=== PATIENT | female | born 1975 | race Caucasian/White ===

== ENCOUNTER 2017-01-31 12:28 | Emergency (ER) | payer MEDICAID ==
[2017-01-31 12:36] VITALS: TEMP 96.8
[2017-01-31] MEDS ORDERED: ONDANSETRON 4 MG/2 ML VIAL ONE (12:41)
--- NOTE | 2017-01-31 12:52 | EDPHY ---
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 Has had epinephrine between 5 and 10 times in the past. Last hospitalized when she was 14 years old. She suddenly got a pecan in a bite of pie at noon and presents with severe nausea and vomiting, face swelling, itching, trouble breathing, and esophageal spasms. The symptoms severe. Started after the nut ingestion. Not associated with wheezing. Not better or worse with anything, took 75 mg Benadryl. REVIEW OF SYSTEMS: Eye: no change in vision ENT: Throat swelling Cardiac: no chest pain or syncope Pulmonary: HPI Abdomen: no vomiting, diarrhea, abdominal pain Musculoskeletal: no back pain Skin: Redness on palms and soles Neuro: no headache Constitutional: no fever : no urinary symptoms A comprehensive 10 point review of systems is otherwise negative aside from elements mentioned in the history of present illness. PAST MEDICAL HISTORY: Asthma, depression Social history: Nonsmoker, no PCP General Appearance: Alert and conversant, cooperative. Eyes: No scleral icterus. ENT, Mouth: Slightly swollen uvula but no stridor or drooling and no tongue swelling. Respiratory: Normal respiratory effort, breath sounds equal, lungs are clear to auscultation. No wheezing. Cardiovascular: Regular rate and rhythm. Gastrointestinal: Abdomen is soft and non tender. Neurological: Alert and oriented x3. Normally conversant. Face symmetric, normal movement and sensation in all extremities. Skin: Red on the palms of her hands but no other urticaria. Musculoskeletal: No peripheral edema and no joint swelling. Psychiatric: Not agitated. Emergency Department course/MDM: The received intramuscular epinephrine 0.3 mL is, IV Solu-Medrol 125 mg, ranitidine 50 mg IV. She took Benadryl 75 mg prior to arrival. 1400: Feels better, throat is improved, vomiting anymore, esophageal spasm has subsided. Plan to observe the patient in the department Patient has EpiPen and primary care follow-up. 1635: Feels better, back to normal, stable for discharge. Smoking Status: Never smoked Constitutional: Initial Vital Signs Temperature (C) 36.0 C 01/31/17 12:35 Heart Rate 100 01/31/17 12:35 Respiratory Rate 18 01/31/17 12:35 Blood Pressure 148/100 H 01/31/17 12:35 O2 Sat (%) 98 01/31/17 12:35 O2 Delivery Mode Room Air Allergies/Adverse Reactions: bupropion HCl [From Wellbutrin SR] Allergy (Verified 11/20/15 14:31) theophylline Allergy (Verified 11/20/15 14:31) Home Medications: Medication Instructions Recorded oxyCODONE/APAP 5/325 [Percocet 1 tab PO Q4-6PRN PRN #14 tab 11/20/15 5/325] Famotidine [Pepcid] 20 mg PO BID #6 tab 01/31/17 predniSONE [prednisone 20mg (RX)] 60 mg PO DAILY 3 Days tab 01/31/17 Medical Decision Making Critical Care Time: Critical care time spent by me, Dr. Kelley, exclusively with the care of this patient was 30 minutes, exclusive of PA or GOVERNMENT INSTRUCTOR time and exclusive of separate procedures. The organ system at risk was airway and I ordered epinephrine, antihistamines, IV steroids, serial examinations, antiemetics and IV fluids; to stabilize the patient and prevent worsening of the patient's condition. - Data Points Medications Given: Discontinued Medications Epinephrine HCl (Epinephrine) 0.3 mg IM EDNOW ONE Stop: 01/31/17 12:55 Last Admin: 01/31/17 12:56 Dose: 0.3 mg Sodium Chloride (Ns) 1,000 mls @ 0 mls/hr IV ONCE ONE; Wide Open PRN Reason: Protocol Stop: 01/31/17 12:57 Last Admin: 01/31/17 12:57 Dose: 1,000 mls Methylprednisolone Sodium Succinate (Solu-Medrol) 125 mg IVP EDNOW ONE Stop: 01/31/17 12:55 Last Admin: 01/31/17 12:56 Dose: 125 mg Ondansetron HCl (Zofran) 4 mg IVP EDNOW ONE Stop: 01/31/17 12:57 Last Admin: 01/31/17 12:57 Dose: 4 mg Ranitidine HCl (Zantac) 50 mg IV EDNOW ONE Stop: 01/31/17 12:55 Last Admin: 01/31/17 12:56 Dose: 50 mg Departure - Departure Disposition: Home, Routine, Self-Care Clinical Impression: Acute anaphylaxis Qualifiers: Encounter type: initial encounter Qualified Code(s): T78.2XXA - Anaphylactic shock, unspecified, initial encounter Condition: Good Instructions: Food Allergy (ED), Anaphylaxis (ED) Referrals: Trixie Menjivar FNP [Retired Resigned] - As per Instructions Prescriptions: Famotidine [Pepcid] 20 mg PO BID #6 tab predniSONE [prednisone 20mg (RX)] 60 mg PO DAILY 3 Days tab
[2017-01-31] MEDS ORDERED: RANITIDINE 50 MG/2 ML VIAL IV ONE (12:54)
[2017-01-31] MEDS ORDERED: methylPREDNISolone SOD SUCC 125 MG/2 ML VIAL IVP ONE (12:54)
[2017-01-31] MEDS ORDERED: ONDANSETRON 4 MG/2 ML VIAL IVP ONE (12:56)
[2017-01-31] MEDS ORDERED: NS 1,000 ML IV ONE (12:56)
[2017-01-31 16:36] VITALS: BP 115/79; PULSE 86; RESP 18; O2SAT 93
[2017-01-31] MEDS ORDERED: methylPREDNISolone SOD SUCC 125 MG/2 ML VIAL ONE (17:11)
[2017-01-31] MEDS ORDERED: RANITIDINE 50 MG/2 ML VIAL ONE (17:11)
== END 2017-01-31 16:43 | disposition home or self-care (01) ==
DX: T78.2XXA Anaphylactic shock, unspecified, initial encounter (principal); E86.9 Volume depletion, unspecified; J45.909 Unspecified asthma, uncomplicated
CPT/HCPCS: 96374; J0171; J2405; J2780

== ENCOUNTER 2018-04-23 14:30 | Inpatient (IN) | payer MEDICAID, OTHER ==
[2018-04-23] MEDS ORDERED: GABAPENTIN 300 MG CAP PO ONE (20:12)
[2018-04-23] MEDS ORDERED: oxyCODONE IR 5 MG TAB PO PRN ×2 (20:18→20:19)
--- NOTE | 2018-04-23 21:22 | GHP ---
DATE OF ADMISSION: 04/23/2018 HISTORY OF PRESENT ILLNESS: I have known the patient for some time. She was scheduled to undergo can rgery later in the month, but at this point is really unable to walk, secondary to lower extremity pa in, and we have admitted her on an urgent basis for an operation. She has really been unable to ambu late or do anything whatsoever at home. The patient has been admitted to the hospital for the planne d surgery on L4 and L5. PHYSICAL EXAMINATION: NEUROLOGIC: Grossly unchanged from all my office visit. She does have bilate ral lower extremity weakness 4+/5 throughout, limited at this point by pain, as well as discomfort. Sensory disturbance is noted in L5 type distribution bilaterally. IMAGING: X-rays from clinic demonstrate an L4-5 spondylolisthesis with moderate canal stenosis. IMPRESSION: L4-5 spondylolisthesis with spinal stenosis. ASSESSMENT/PLAN: I will bump releases surgery and do this tomorrow. It will be an L4-5 MIS transfor aminal lumbar interbody fusion. The procedure is going to reduce the spondylolisthesis and bilateral L4 pars fractures. Will perform a complete facetectomy to perform a transforaminal decompression of the affected level, and will also stabilized with screws and rods. Patient will be n.p.o. after mid night. I have ordered some pain medicine in the meantime, and I will see the patient tomorrow for th e proposed operation. /[id number]/MODL
[2018-04-23] MEDS: ONDANSETRON DISINTEGRATING 4 MG TAB PO PRN (21:29)
[2018-04-23] MEDS: METHOCARBAMOL 750 MG TAB PO SCH (21:29)
[2018-04-24] MEDS: METHOCARBAMOL 750 MG TAB PO SCH ×3 (08:40→21:51)
--- NOTE | 2018-04-24 10:38 | ASMTCMCOM ---
CM Note CM Note Notes: Pt in for back surgery, was scheduled later this month but has had difficulty ambulating. Pt to have surgery and PT to eval when appropriate. H&P indicates pt resides alone. CM to follow for d/c needs. Date Signed: 04/24/2018 10:38 AM Electronically Signed By:MIK Sinclair
--- NOTE | 2018-04-24 11:01 | GPROG ---
DATE OF SERVICE: 04/24/2018 I saw and evaluated the patient today this morning. She knows to be n.p.o. for the proposed procedur e this afternoon. Everything has been squared away and will bring her back to the operating room in several hours. All questions have been answered regarding the proposed operation with the patient, b oth in the clinic, as well as in the hospital today. /[id number]/MODL
[2018-04-24] MEDS ORDERED: TRANEXAMIC ACID 1,000 MG in NS 100 ML IV ONE (14:00)
[2018-04-24] MEDS ORDERED: ceFAZolin 2 GM/DEXTROSE 100 ML IV ONE (14:00)
[2018-04-24] MEDS ORDERED: LR 1,000 ML IV ONE (14:17)
[2018-04-24] MEDS ORDERED: BUPIVACAINE/EPI 0.5% 30 ML SDV ONE ×2 (14:28→17:13)
[2018-04-24] MEDS ORDERED: SURGIFLO MATRIX KIT WITH THROMBIN 8 ML TP ONE (14:29)
[2018-04-24] MEDS ORDERED: BACITRACIN 50,000 UNITS/10 ML SYR IRR ONE (14:29)
--- NOTE | 2018-04-24 14:40 | PDANEPAE ---
ANE History of Present Illness Bilateral LE weakness and numbness ANE Past Medical History - Cardiovascular History Hx Hypertension: No Hx Arrhythmias: No Hx Chest Pain: No Hx Coronary Artery / Peripheral Vascular Disease: No Hx CHF / Valvular Disease: No Hx Palpitations: No - Pulmonary History Hx COPD: No Hx Asthma/Reactive Airway Disease: Yes Hx Recent Upper Respiratory Infection: No Hx Oxygen in Use at Home: No Hx Sleep Apnea: No Sleep Apnea Screening Result - Last Documented: Negative - Endocrine History Hx Diabetes: No - Chronic Pain History Chronic Pain: Yes ANE Review of Systems Review of systems is: negative Review of Systems: - Exercise capacity METS (RN): 4 METS ANE Patient History - Allergies Allergies/Adverse Reactions: bupropion HCl [From Wellbutrin SR] Allergy (Verified 04/23/18 21:18) Sulfa (Sulfonamide Antibiotics) Allergy (Unverified 04/23/18 21:18) Anaphylaxis theophylline Allergy (Verified 04/23/18 21:18) - Home Medications Home medications: home medication list seen and reviewed Home Medications: Albuterol [Proventil Inhaler HFA (*)] 1 - 2 puffs IH Q4H PRN 04/23/18 [Last Taken 02/13/18] Amphet Asp and D/Amphet [Adderall 10 MG (*)] 10 mg PO DAILY PRN 04/23/18 [Last Taken 04/22/18] Cyclobenzaprine [Cyclobenzaprine HCl] 5 mg PO TID PRN 04/23/18 [Last Taken 04/23 09:00] Famotidine [Pepcid 20 MG (*)] 20 mg PO BID PRN 04/23/18 [Last Taken 04/23/18 09: 00] Naproxen Sodium [Aleve 220 MG (*)] 220 mg PO BID PRN 04/23/18 [Last Taken ] - NPO status NPO Status: no food or drink >8 hours NPO Since - Liquids (Date): 04/23/18 NPO Since - Liquids (Time): 23:59 NPO Since - Solids (Date): 04/23/18 NPO Since - Solids (Time): 21:00 - Anes Hx Anes Hx: no prior problems - Smoking Hx Smoking Status: Never smoked ANE Labs/Vital Signs - Vital Signs Blood Pressure: 137/93 Heart Rate: 73 Respiratory Rate: 18 O2 Sat (%): 98 Height: 165.1 cm Weight: 89 kg ANE Physical Exam - Airway Neck exam: FROM Mallampati Score: Class 1 Mouth exam: normal dental/mouth exam - Pulmonary Pulmonary: no respiratory distress - Cardiovascular Cardiovascular: regular rate and rhythym - ASA Status ASA Status: II ANE Anesthesia Plan Anesthesia Plan: general endotracheal anesthesia
[2018-04-24] MEDS ORDERED: MIDAZOLAM 2 MG/2 ML VIAL IVP ONE (14:42)
[2018-04-24] MEDS ORDERED: MIDAZOLAM 2 MG/2 ML VIAL ONE (14:43)
[2018-04-24] MEDS ORDERED: PROPOFOL 200 MG/20 ML VIAL ONE (14:45)
[2018-04-24] MEDS ORDERED: fentaNYL 100 MCG/2 ML INJ ONE ×3 (14:45→17:47)
[2018-04-24] MEDS ORDERED: REMIFENTANIL HCL 1 MG VIAL ONE ×2 (14:45→17:02)
[2018-04-24] MEDS ORDERED: PROPOFOL/EMULSION 500 MG/50 ML BOTTLE IV ONE ×2 (14:46→17:02)
[2018-04-24] MEDS ORDERED: VANCOMYCIN 500 MG/10 ML VIAL IV ONE (15:05)
[2018-04-24] MEDS ORDERED: LIDOCAINE 2% 5 ML SDV ONE (15:22)
[2018-04-24] MEDS ORDERED: ROCURONIUM 50 MG/5 ML VIAL ONE (15:22)
[2018-04-24] MEDS ORDERED: DEXAMETHASONE 4 MG/ML VIAL ONE ×2 (15:25)
--- NOTE | 2018-04-24 15:37 | PDMN ---
Medical Necessity Medical necessity: Pt meets inpt criteria per MD order and [facility] [place] S-820, Lumbar Fusion, IP only list. 42 y/o w/spondylolisthesis w/spinal stenosis who was scheduled for surg later in month, admitted on urgent basis for as she is unable to ambulate, surgery: L4/5 TLIF, post-op care.
[2018-04-24] MEDS ORDERED: NALOXONE HCL 0.4 MG/ML INJ IVP PRN (17:09)
[2018-04-24] MEDS ORDERED: PROMETHAZINE HCL 25 MG/ML INJ IVP PRN ×2 (17:09→19:47)
[2018-04-24] MEDS ORDERED: ONDANSETRON 4 MG/2 ML VIAL IVP PRN (17:09)
[2018-04-24] MEDS ORDERED: ONDANSETRON 4 MG/2 ML VIAL ONE (17:14)
[2018-04-24] MEDS ORDERED: BISACODYL 10 MG SUPP PR PRN (17:43)
[2018-04-24] MEDS ORDERED: POLYETHYLENE GLYCOL 3350 17 GM PKT PO PRN (17:43)
[2018-04-24] MEDS ORDERED: LACTULOSE 20 GM/30 ML UDCUP PO PRN (17:43)
[2018-04-24] MEDS: fentaNYL 100 MCG/2 ML INJ IVP PRN ×2 (17:49→17:53)
--- NOTE | 2018-04-24 17:55 | SUROPNOTE ---
[facility] Operative Report - Surgery Date: 04/24/18 Pre-operative Diagnoses: L4/5 Degenerative disc disease and spondylosis L4/5 Degenerative spondylolisthesis L4 Bilateral pars insufficiency fractures Lumbar spinal stenosis Post-operative Diagnosis: Same Procedures: L4/5 Minimally Invasive Posterior Lumbar Fusion with Instrumentation Lt Transforaminal Lumbar Interbody Fusion (TLIF) Structural use of morselized local autograft bone Structural use of allograft Use of intra-operative fluoroscopy Use of intra-operative neuromonitoring, including EMG and SSEP modalities Use of a surgical microscope Surgeon: Ramakrishna Marley MD Assist: Ally Olvera Anesthesia: General endotracheal anesthesia Findings: As expected spondylolisthesis, spinal stenosis, facet hypertrophy Estimated Blood Loss: 100mL Drains: Hemovac sewn to skin Specimens: None Complications: None Condition: Transferred to PACU in stable condition Implants: NuVasive Screws: 6.5x45mm x2 Rods: 40mm x2 TLIF cage: TLX 20 deg x [id number] Allograft: 5mL allograft used structurally in the disc space and interbody cage Autograft: local bone from decompression used structurally in the disc space and interbody cage Indications: This patient was seen in my office and diagnosed with degenerative spondylolisthesis and spinal stenosis. I have explained all options of treatment for the patient, and the patient has elected to proceed with operative management. I have explained all risks, benefits, and alternatives of the proposed procedure. The risks that we have discussed include , blindness, nerve damage, infection, dural tear, failure of surgery to alleviate pre-operative symptoms, nonunion, and possible need for further operation. I explained separately the risks of allograft, including infection and disease transfer. In addition to the aforementioned procedure, I discussed with the patient that other procedures may be indicated during the course of surgery that would be considered in the patients best interest. The patient expressed understanding of this and agreed to move forward with operative management. Pre-operative: The proposed incision site was marked in the pre-operative holding area by me. The patient was then taken to the operating room in stable condition. Following smooth induction of general anesthesia, the patient was positioned prone on a [place] table in mild reverse Trendelenburg with all down surfaces well-padded. The patient was then prepped and draped in the usual sterile fashion. Pre- operative antibiotics were administered within one hour of the incision. A surgical timeout was performed, and all parties involved in the procedure were in agreement on the correct patient, location, and procedure to be performed. Level localization and spinal pause: The proposed L4 and L5 levels were identified using C-arm fluoroscopy and the skin was marked for the proposed incision. The pedicles were marked out. Two separate incisions, 4cm lateral to midline were made, approximately 4cm in length. Electrocautery was used to dissect the subdermal fat layer down to fascia and to coagulate bleeding vessels. The fascia was then incised longitudinally in line with the incision. Blunt finger dissection was then performed; the facets were palpated and muscle was swept away al allow for instrumentation to be passed easily down to bone. At this time, a secondary spinal pause was then performed, and the level was confirmed with all parties participating in the operation. Pedicle screw placement: All pedicle screws were placed in a percutaneous fashion. Using biplanar fluoroscopy, a Jamshidi needle was gently malleted into place at the appropriate pedicle screw starting position at the lateral border of the facet on the AP view and mid-point of the pedicle on lateral view. The needle was advanced just past the pedicle into the vertebral body. At this point, a neurostimulating probe was attached to the end of the needle and all potentials were noted to be above 10 milliamps. The central trocar was then removed, and a blunt K-wire was passed into the cannulated pedicle. The Jamshidi was then removed completely, with the K-wire anchored in the vertebral body. A tap was then used up to a size that was 1mm below the final screw size based on pre- operative templating. An appropriately-sized screw was placed at each level and confirmed fluoroscopically. On the same side as the TLIF cage, two headless shanks were placed, which would allow for facile visualization of bony landmarks and safe decompression. On the contralateral side, complete pedicle screws with associated reduction towers were placed at this time. All screws were then stimulated. Each screw was stimulated and potentials were all above 10 milliAmps. Approach and transpedicular decompression (cephalad level nerve root to be fused ): Based on pre-operative neurological symptoms, a decision was made with the patient to place a TLIF cage on the more symptomatic side. A pointed dilator was introduced onto the lateral pars of the caudal level to be fused. Serial dilators were used and the XLIF retractor system was then docked. Positioning was confirmed parallel to the disc space to be fused by lateral fluoroscopy. Using a transpedicular decompression technique and taking care to avoid breach into the previously created pedicle tract, the inferior facet of the cephalad level to be fused, and the superior facet of the caudal level to be fused were removed using a high speed moreno and Kerrison rongeurs. Special care was taken to not use the high speed moreno in proximity to the underlying nerve root. Using a Linwood #4, the nerve was protected cephalad and Kambins triangle was identified (bordered by the nerve root cephalad and the thecal sac medially). TLIF: The disc space to be fused was identified by appearance and consistency. With a disc knife angled away from neural structures, the annulus was transected and removed using a disc punch. A disc space dilator was used to free any remaining annulus, which was removed using a disc punch and/or scalpel. All remaining nucleus pulposus and cartilage from both cephalad and caudal end plates were removed using a series of straight and angled disc preparation curettes. A blunt -tipped long 10mL syringe was then passed into the disc space and flushed to remove any additional disc fragments; this was done multiple times until no further loose fragments were produced. Trial TLIF spacers were then passed into the disc space to both dilate the space and adequately size the final implant. Local autograft bone was then combined with allograft bone; 5mL of bone was inserted into the disc space using a specialized bone insertion device, and the remaining bone was placed into the interbody cage. After this, an appropriately sized cage was selected, packed with local autograft bone, and attached to an inserted handle. The TLIF cage was then malleted into place and positioning was confirmed by visual inspection and biplanar radiographs. Any bleeding epidural vessels were coagulated using bipolar cautery. A size [id number] cage was used. Hayden and set screw placement, reduction of spondylolisthesis and bilateral pars insufficiency fractures: At this time, associated tulip heads were placed into the screws with associated reduction towers on the TLIF side. Using a percutaneous hayden passer, an appropriately-sized hayden was then placed into the pedicle screw heads with ample hayden extending from either end. To ensure that the rods were appropriately positioned, three checks were performed: the rods were visually inspected, the insertion handle was torqued and both towers were visualized to move, and a lateral radiograph was taken to ensure an appropriate length to the rods. The set screws were then tightened in the caudal screws first. Using the reduction towers in the cephalad screws, the pedicle screws were then engaged and pulled posteriorly into the rods. This was done simultaneously on both sides to minimize stress at either level. At this point, a lateral radiograph was taken and reduction of the vertebral insufficiency fractures was noted. Of note, there were no changes in the SSEP and EMG monitoring during this maneuver. Set screws were then placed into the cephalad pedicle screws over the rods, and all set screws were tensioned using a torque-limited screwdriver. Of note, final xrays demonstrated a slightly paracentral TLIF cage (to the right), which was deemed acceptable. Bone graft: All bony surfaces were decorticated using a high speed moreno, including all facets to be fused. All local autograft bone was cleaned of soft tissue and morselized. All remaining allograft and autograft bone was placed in the facets being fused. Closure: The surgical field was then copiously irrigated with sterile saline. Vancomycin powder was then applied to the surgical field. A small drain was placed deep to the fascia and brought out of the skin superior and laterally. The drain was then sewn to skin. #1 vicryl suture were used to repair the fascia in an interrupted fashion. Then 2-0 interrupted sutures were used to repair the dermal layer, and a separate 3-0 monofilament suture was used to repair the subcutaneous layer in a running fashion. All sutures used were absorbable. Topical adhesive was then applied to the skin and allowed to dry. A sterile island dressing was applied over the surgical incision. A surgical count was performed before initiation of closure and following the procedure, and all were correct. I was present for the entire procedure. Surgical microscope use: A surgical microscope was utilized throughout the decompressive portion of this case. This was deemed necessary for safe and accurate surgical decompression of affected nerve roots. Neuromonitoring: SSEP, MEP and EMG were used throughout the case from incision until the beginning of closure. There were no significant changes throughout the case, and SSEP signals were at their pre-surgical baseline levels before surgical closure was initiated. library clerical assistant: A surgical services asst was used throughout the case, and deemed necessary for safe neural retraction, hemostasis, and suction. Recovery: The patient was extubated uneventfully in the operating room. The patient was taken to the recovery room in stable condition. Sequential compression devices for VTE prophylaxis were applied to the patients lower extremities, and were ordered to be used while the patient was non-ambulatory. Chemical VTE prophylaxis was considered to be contraindicated for this patient because of the risk of bleeding near the epidural space. 22 modifier: of note, the patient's BMI over 32 made the case more technically challenging. An extra 30 minutes was spent to safely dissect and approach neural structures. A 22 modifier will be added to the case. Ramakrishna Marley MD
--- NOTE | 2018-04-24 18:00 | POSTANESTH ---
Post Anesthetic Evaluation Cardiovascular Status: Similar to Pre-Op Cond Respiratory Status: Similar to Pre-op Cond. Level of Consciousness/Mental Status: Can Participate in Eval, Alert and Oriented Pain Control: Inadeq, Add Tx Required Nausea/Vomiting Control: Adequate, Prn Tx Ordered Complications Possibly Related to Anesthesia: None Noted
[2018-04-24] MEDS ORDERED: DIAZEPAM 5 MG/ML 1 ML SYR ONE (18:01)
[2018-04-24] MEDS ORDERED: HYDROmorphONE/DILAUDID 2 MG/ML INJ ONE (18:01)
[2018-04-24] MEDS: HYDROmorphONE/DILAUDID 2 MG/ML INJ IVP PRN ×4 (18:09→18:31)
[2018-04-24] MEDS: DIAZEPAM 5 MG/ML 1 ML SYR IVP PRN (18:11)
[2018-04-24] MEDS: ONDANSETRON DISINTEGRATING 4 MG TAB PO PRN (19:20)
[2018-04-24] MEDS: SENNOSIDES 17.6 MG/10 ML UDL PO SCH (20:03)
[2018-04-24] MEDS: HYDROmorphONE/DILAUDID 1 MG/ML INJ IVP PRN ×2 (20:03→21:50)
[2018-04-24] MEDS: ceFAZolin 2 GM/DEXTROSE 100 ML IV SCH (22:00)
[2018-04-25] MEDS: DIAZEPAM 5 MG/ML 1 ML SYR IVP PRN (00:12)
[2018-04-25] MEDS ORDERED: METHOCARBAMOL 750 MG TAB PO ONE (01:30)
[2018-04-25 05:03] LABS: PLATELET COUNT 273 10^3/uL (150-400)
[2018-04-25] MEDS: ceFAZolin 2 GM/DEXTROSE 100 ML IV SCH (07:50)
[2018-04-25] MEDS: METHOCARBAMOL 750 MG TAB PO SCH ×3 (07:50→22:16)
[2018-04-25] MEDS: SENNOSIDES 17.6 MG/10 ML UDL PO SCH ×2 (07:50→21:11)
[2018-04-25] MEDS: HYDROmorphONE/DILAUDID 2 MG TAB PO PRN ×5 (10:43→22:16)
--- NOTE | 2018-04-25 14:08 | GPROG ---
DATE OF SERVICE: 04/25/2018 I saw and evaluated the patient this morning at the bedside. She is doing quite well. She was havin g some spasms overnight, which was controlled with IV pain medication, but seems to be doing much bet ter now. Straight-leg raise is negative bilaterally. She has no gross sensory, motor, or vascular d eficits, and the dressings are clean, dry, intact, and left in place. IMPRESSION: Postoperative day 1, status post MIS TLF, L4-L5. ASSESSMENT AND PLAN: The patient has, I think, done well from the operation. The x-rays at the end of the procedure looked good. She has interval reduction of the spondylolisthesis. She notes that h er leg pain has been improved since before the operation. We will progress her with physical therapy . We will see how she does, and we [facility] /[id number]/MODL
--- NOTE | 2018-04-25 15:26 | ASMTCMCOM ---
CM Note CM Note Notes: Pt had surgery yesterday. PT/O rec home. Anticipate pt will d/c when medically stable. No CM d/c needs identified. CM available for change/needs. Date Signed: 04/25/2018 03:26 PM Electronically Signed By:MIK Sinclair
[2018-04-25] MEDS ORDERED: chlorproMAZINE HCL 25 MG TAB PO PRN (20:29)
[2018-04-26] MEDS: HYDROmorphONE/DILAUDID 2 MG TAB PO PRN ×5 (02:54→22:16)
[2018-04-26] MEDS: SENNOSIDES 17.6 MG/10 ML UDL PO SCH ×2 (08:07→22:24)
[2018-04-26] MEDS: METHOCARBAMOL 750 MG TAB PO SCH ×3 (08:10→22:16)
[2018-04-26] MEDS: DIAZEPAM 5 MG/ML 1 ML SYR IVP PRN (13:41)
[2018-04-26] MEDS: HYDROmorphONE/DILAUDID 1 MG/ML INJ IVP PRN ×2 (14:26→15:56)
--- NOTE | 2018-04-26 15:56 | GPROG ---
I saw and evaluated the patient this morning. She is doing quite well. She reports her pain has bec ome more tolerable over the last 24 hours, although she does require occasional IV pain medication. On physical exam, she has no sensory, motor, or vascular deficits and the dressings are clean, dry, i ntact and left in place. Moving forward, the patient reports near complete resolution of the leg pain she had before the opera tion. She is having some left lower extremity pain at this point, which is probably from placement o f the TLIF cage, but overall, she has no neurological deficit and seems to be improving. We will see how she does today. We will discharge her if she feels like it, but if she would like another night to be assessed by Physical Therapy and tolerate the pain better, we can certainly do that as well. /[id number]/MODL
[2018-04-26] MEDS ORDERED: GABAPENTIN 300 MG CAP PO ONE (19:28)
[2018-04-26] MEDS ORDERED: DIAZEPAM 5 MG TAB PO PRN (19:30)
[2018-04-26] MEDS: GABAPENTIN 300 MG CAP PO SCH (22:16)
[2018-04-27] MEDS: HYDROmorphONE/DILAUDID 2 MG TAB PO PRN ×3 (05:00→13:00)
--- NOTE | 2018-04-27 07:16 | GPROG ---
I saw and evaluated the patient on my evening rounds. She is doing well. She is requiring some IV p ain medicine; however, I saw her ambulating quite well on the floor, and this seems to have largely r esolved. In light of the patient getting some additional IV pain medicine, we decided to take some x -rays. The x-rays look good. She does have interval reduction of the spondylolisthesis with accepta ble positioning of the instrumentation without evidence of migration or failure. The cage itself osmany ears to be well positioned. ASSESSMENT AND PLAN: We will let the patient go home tomorrow. We changed all of her IV medications to oral. I suspect that the left leg pain that she is having is simply from swelling. We will also give her some Neurontin tonight as well. /[id number]/MODL
--- NOTE | 2018-04-27 07:25 | GPROG ---
In reviewing the x-rays for Debbie, the instrumentation is clearly at L5-S1. There is clear interval reduction of the spondylolisthesis. The surgery was documented to be at L4-L5; however, it was clear that the level that needed treatment, i.e. the level with spondylolisthesis, was operated upon. In reviewing the fluoroscopy from the surgery, those images are not available as they were not saved. I n comparison to our office radiographs that were taken, this is clearly the correct level and was lab eled differently for the sake of counting purposes at the beginning of the procedure. What is import ant is that the operative level was consistent throughout the operation and the radiographic patholog y has since been treated. /[id number]/MODL
[2018-04-27 07:29] VITALS: BP 106/59
[2018-04-27] MEDS: METHOCARBAMOL 750 MG TAB PO SCH (09:05)
[2018-04-27] MEDS: GABAPENTIN 300 MG CAP PO SCH (09:05)
[2018-04-27] MEDS: SENNOSIDES 17.6 MG/10 ML UDL PO SCH (09:08)
--- NOTE | 2018-04-27 16:49 | GDS ---
The patient underwent an uneventful left L4-5 MIS TLIF on 04/24/2018. She progressed well following the operation. There were no complications. Her pain was well controlled on an oral regimen. On , the patient was subsequently cleared for discharge and will be discharged home. She is to wear her back brace at all times when she is walking any sort of long distance. I will see her in 2 weeks' time in the office. She can take the dressing off 1 day following discharge from [facility] and is allowed to shower. She is not to bend, lift, or twist in the meantime. My office will reach out to her and make a postoperative appointment at 2 weeks and 6 weeks following the opera tion. She has my cell phone, as well as the pre-surgical booklet should any questions arise. All qu estions have been answered at this time for the patient. /[id number]/MODL
--- NOTE | 2018-04-27 16:49 | GPROG ---
DATE OF SERVICE: 04/27/2018 I saw and evaluated the patient on my morning rounds today. Overall, she is doing quite well. She d oes have a little bit of left lower extremity radicular symptoms, which are residual, which have florian fested in just a little bit of pain and a positive straight leg raise. She, otherwise, has no sensor y, motor, or vascular deficits. Dressings are clean, dry, intact and left in place. ASSESSMENT/PLAN: Moving forward, the patient will be discharged home today and will follow up in 2 w [facility]. She has done quite well from the operation. /[id number]/MODL
== END 2018-04-27 15:35 | disposition home or self-care (01) | DRG 460 ==
LOC: F3N 19:54 → OBSVTOIN 04-24 12:00 → PREINTOOBSV 04-24 15:55
PROVIDERS: ADMIT Orthopaedic Surgery Orthopaedic Surgery of the Spine; ATTEND Orthopaedic Surgery Orthopaedic Surgery of the Spine
DX: M47.896 Other spondylosis, lumbar region (principal); M84.48XA Pathological fracture, other site, initial encounter for fracture; M43.16 Spondylolisthesis, lumbar region; M48.062 Spinal stenosis, lumbar region with neurogenic claudication; Z68.32 Body mass index [BMI] 32.0-32.9, adult
CPT/HCPCS: 97116-GP; 97161-GP; 97166-GO; 97535-GO; C1713; C1762; J0690; J1100; J1170; J2250; J2270; J2405; J2550; J2704; J3010; J3360; J3370